=== PATIENT | male | born 1975 | race African-American/Black ===

== ENCOUNTER 2017-06-03 18:21 | Emergency (ER) | payer OTHER ==
[~2017-06-03] VITALS: Ht 185.4 cm; Wt 137.3 kg
[~2017-06-03 18:21] MED LIST: HYDR-3971 PO
[2017-06-03] MEDS ORDERED: DOCU100C19 PO (21:47)
[2017-06-03] MEDS ORDERED: METH-370 PO (21:47)
[2017-06-03] MEDS ORDERED: ONDANSETRON HCL 4 MG/2 ML VIAL IVP ONE (22:30)
[2017-06-03] MEDS ORDERED: MAG HYDROX/AL HYDROX/SIMETH ES 30 ML SUSPENSION UDCUP PO ONE (22:30)
[2017-06-03] MEDS ORDERED: SODIUM CHLORIDE 0.9% 1,000 ML IV ONE (22:30)
[2017-06-03] MEDS ORDERED: LORazepam 2 MG/ML VIAL IVP ONE (22:30)
[2017-06-03 22:39] LABS: BASOPHILS % (AUTO) 0.3 % (0.0-2.0); EOSINOPHILS % (AUTO) 3.6 % (1.0-6.0); HEMATOCRIT 38.6 % (41-53); LYMPHOCYTES # (AUTO) 2.8 K/uL (1.0-4.8); LYMPHOCYTES % (AUTO) 39.5 % (22.0-44.0); MEAN CORPUSCULAR HEMOGLOBIN 29.1 pg (26.0-34.0); MEAN CORPUSCULAR HGB CONC 33.8 G/dL (31.0-37.0); MEAN CORPUSCULAR VOLUME 86 fL (80-100); MONOCYTES # (AUTO) 0.6 K/uL (0.1-1.0); MONOCYTES % (AUTO) 8.4 % (2.0-9.0); NEUTROPHILS # (AUTO) 3.4 K/uL (1.8-7.7); NEUTROPHILS % (AUTO) 48.2 % (40.0-70.0); PLATELET COUNT (AUTO) 278 K/uL (150-450); RED BLOOD CELL COUNT(AUTO) 4.48 MIL/uL (4.50-5.90); RED CELL DISTRIBUTION WIDTH 12.9 % (11.5-14.5)
[2017-06-03 22:50] VITALS: BP 124/76
[2017-06-03 22:50] LABS: ANION GAP 9 mmol/L (8-16); CALCIUM, TOTAL 9.9 mg/dL (8.8-10.5); CARBON DIOXIDE 28 mmol/L (22-29); CHLORIDE 106 mmol/L (98-107); CREATININE 1.07 mg/dL (0.60-1.30); GLOMERULAR FILTR. RATE CALC > 60 mL/min (>60); POTASSIUM 4.2 mmol/L (3.5-5.1); SODIUM SERUM 143 mmol/L (136-145); UREA NITROGEN, BLOOD 16 mg/dL (7-18)
[2017-06-03 23:28] LABS: THYROID STIMULATING HORMONE < 0.01 uIU/mL (0.36-3.74)
== END 2017-06-03 23:45 | disposition home or self-care (01) ==
LOC: EMS 18:22
DX: R06.6 Hiccough (principal); E05.90 Thyrotoxicosis, unspecified without thyrotoxic crisis or storm; Z88.8 Allergy status to other drugs, medicaments and biological substances; Z88.6 Allergy status to analgesic agent
CPT/HCPCS: 36415; 80048; 84439; 84443; 85025; 96361; 96374; 96375; 99284; J2060; J2405; J7030

== ENCOUNTER 2018-06-25 21:51 | Emergency (ER) | payer OTHER ==
[~2018-06-25] VITALS: Ht 185.4 cm; Wt 135.4 kg
[~2018-06-25 21:51] MED LIST changes: +DOCU-281 PO; +METH-370 PO
[2018-06-25] MEDS ORDERED: PROP10TA73 PO (22:14)
[2018-06-26] MEDS ORDERED: CYCLOBENZAPRINE HCL 10 MG TABLET PO ONE (02:30)
[2018-06-26] MEDS ORDERED: HYDROCODONE/ACETAMINOPHEN 5-325 MG TABLET PO ONE (02:30)
[2018-06-26 02:51] VITALS: BP 145/83
== END 2018-06-26 03:15 | disposition home or self-care (01) ==
LOC: EMS 21:53
DX: S13.4XXA Sprain of ligaments of cervical spine, initial encounter (principal); I10 Essential (primary) hypertension; E03.9 Hypothyroidism, unspecified; Z98.890 Other specified postprocedural states; Z88.6 Allergy status to analgesic agent; V49.9XXA Car occupant (driver) (passenger) injured in unspecified traffic accident, initial encounter; Y93.89 Activity, other specified; Y92.89 Other specified places as the place of occurrence of the external cause; Y99.8 Other external cause status
CPT/HCPCS: 72125; 99284